=== PATIENT | male | born 1995 | race Hispanic/Latino ===

== ENCOUNTER 2025-03-14 10:05 | Emergency (ER) | payer SELFPAY ==
[2025-03-14 10:08] VITALS: BP 116/103; PULSE 77; RESP 16; TEMP 36.9; O2SAT 99
--- NOTE | 2025-03-14 10:50 | ED_ITS ---
HPI - Skin/Abscess/Foreign Bdy General Chief complaint: Skin/Abscess/Foreign Body Stated complaint: Skin Irritation on Arms and Legs Time Seen by Provider: 03/14/25 10:15 Source: patient and RN notes reviewed Mode of arrival: ambulatory Limitations: no limitations History of Present Illness HPI narrative: 29-year-old male presents Express Care complaining of rash on bilateral hands and legs over the last week. Patient reports as a pruritic rash is on his left forearm right forearm. She also reports having a papular rash on the right lower leg. Patient denies any irritants or being out in the [place]. Patient has been using [id number] in ?cream? without relief. Patient denies any fevers, body aches, chills, or any upper respiratory symptoms. The rash on patient's arm is linear in distribution. Related Data Allergies Allergy/AdvReac Type Severity Reaction Status Date / Time No Known Allergies Allergy Verified 03/14/25 10:15 Review of Systems Review of Systems: CONSTITUTIONAL: Denies fever, chills, or sweats. EYES: Denies visual changes, redness, or discharge. ENT: Denies rhinorrhea, congestion, sore throat, or otalgia. CARDIOVASCULAR: Denies chest pain, palpitations, or edema. RESPIRATORY: Denies cough or dyspnea. GASTROINTESTINAL: Denies abdominal pain, nausea, vomiting, or diarrhea. GENITOURINARY: Denies dysuria or hematuria. SKIN: Positive for rash and itching. MUSCULOSKELETAL: Denies back pain, joint pain, or myalgia. NEUROLOGIC: Denies headache, numbness, or weakness. PSYCHIATRIC: Denies anxiety or depression. All other systems reviewed are negative, except as documented in HPI. PMFSH Comments At the time of my signature, I reviewed and agree with the nursing past medical, surgical, social, and family history. There is no relevant family history pertinent to the patient complaint. Exam Narrative: GENERAL: This is a well-nourished, well-developed adult, in no apparent distress. They are non ill-appearing, nontoxic appearing. HEAD: normocephalic, atraumatic. EYES: Sclera clear/white. Conjunctiva normal. Vision is grossly intact. Extraocular movements intact EARS: External ears normal,Hearing grossly intact. NOSE: External nose normal THROAT: Mucous membranes moist NECK: Neck supple CARDIOVASCULAR: Regular rate and rhythm RESPIRATORY: Respiratory rate normal, respiratory effort nonlabored, no respiratory distress SKIN: Left forearm: Linear erythematous, vesicular rash measures approximately 5 cm long by 1 cm wide. No surrounding cellulitis, exudate, induration, area of fluctuance. Right forearm: Linear erythematous, vesicular rash measuring 3 cm long approximately 1 cm wide to the anterior right forearm. No surrounding cellulitis, exudate, induration, area of fluctuance. Scattered erythematous vesicular rash throughout the distal right forearm. Right leg: Erythematous papular rash consistent with insect bites throughout the patient's right lower leg. No surrounding cellulitis, exudate, induration, area of fluctuance. Lesions are nontender throughout. NEURO: awake, alert, and oriented to person, place and time. There were no obvious focal neurologic abnormalities. EXTREMITIES: No joint tenderness, effusion, or edema noted. Course Course Emergency Course: Portions of this record may have been created with voice recognition software Level of Care: Express Care Visit Vital Signs Vital signs: Vital Signs Temperature 98.5 F 03/14/25 10:08 Pulse Rate 77 03/14/25 10:08 Respiratory Rate 16 03/14/25 10:08 Blood Pressure 116/103 H 03/14/25 10:08 Pulse Oximetry 99 03/14/25 10:08 Oxygen Delivery Room Air 03/14/25 10:08 Temperature 98.5 F 03/14/25 10:08 Pulse Rate 77 03/14/25 10:08 Respiratory Rate 16 03/14/25 10:08 Blood Pressure 116/103 H 03/14/25 10:08 Pulse Oximetry 99 03/14/25 10:08 Oxygen Delivery Room Air 03/14/25 10:08 Reviewed MDM - Skin/Abscess/Foreign Bdy MDM Narrative Medical decision making narrative: Likely patient has a contact dermatitis to his forearms and what appears to be insect bites throughout his right lower leg. Will prescribe triamcinolone cream to help with symptoms. Discussed physical exam findings. Advised supportive measures and signs/symptoms to go to the ER. Pt is appropriate for outpt treatment and f/u. Differential Diagnosis Differential diagnosis: Likely eczema, insect bites and contact dermatitis Critical Care Time Critical Care Time Critical Care Time: No Discharge Plan Discharge Clinical Impression: Contact dermatitis Patient Disposition: Home Condition: Stable Instructions: Contact Dermatitis (ED) Additional Instructions: Use steroid cream as directed. Apply only to the affected area. Wash the skin daily with mild soap and water. Avoid anything may cause irritation to her skin. Follow-up with PCP in 3-5 days. You may also use Zyrtec or Claritin as needed for any itchiness or allergy symptoms. If you develop any worsening swelling, discharge, redness, fevers, or any other concerns please go to the ER immediately. Patient Language: Japanese Prescriptions: New triamcinolone acetonide 0.5 % cream 1 applic topical BID 7 Days Qty: 15 0RF Rx Instructions: Apply to affected area. Do not apply to face. Follow-up/Referrals: PHYSICIAN,ORDER CONTROL CLERK BLOOD BANK [Primary Care Provider] - Time of Disposition: 10:28
== END 2025-03-14 10:31 | disposition home or self-care (01) ==
DX: L25.9 Unspecified contact dermatitis, unspecified cause (principal)
CPT/HCPCS: 99203; G0463